=== PATIENT | male | born 1995 | race Caucasian/White ===

== ENCOUNTER 2018-06-06 06:35 | Emergency (ER) | payer MEDICAID ==
[~2018-06-06] VITALS: Ht 165.1 cm; Wt 63.6 kg
[2018-06-06 06:42] VITALS: Ht 165.1 cm; Wt 63.6 kg
[2018-06-06] MEDS ORDERED: OMEPRAZOLE20 M1 (06:43)
[2018-06-06 07:04] LABS: HEMATOCRIT 45.3 % (42.0-54.0); HEMOGLOBIN 16.4 g/dL (13.5-17.5); LYMPHOCYTES 21.4 % (15-50); MCH 30.7 pg (26.0-34.0); MCHC 36.2 g/dL (31.0-37.0); MCV 84.8 fL (80.0-100.0); MEAN PLATELET VOLUME 10.2 fL (7.4-10.4); NEUTROPHILS 70.6 % (40-80); PLATELET COUNT 195 10x3/uL (130-400); RBC 5.34 10x6/uL (4.20-6.10); RDW 13.1 % (11.5-14.5); WBC 11.4 10x3/uL (4.8-10.8)
[2018-06-06 07:18] LABS: ALBUMIN 4.5 g/dL (3.4-5.0); ALKALINE PHOSPHATASE 95 U/L (46-116); ALT (SGPT) 34 U/L (10-68); CALC OSMOLALITY 281 mosm/kg (275-300); CALCIUM 9.4 mg/dL (8.5-10.1); CARBON DIOXIDE 26.9 mmol/L (21.0-32.0); CHLORIDE - SERUM 101 mmol/L (98-107); CREATININE - SERUM 0.8 mg/dL (0.6-1.3); GLUCOSE 109 mg/dL (74-106); POTASSIUM - SERUM 3.8 mmol/L (3.5-5.1); SODIUM 140 mmol/L (136-145); UREA NITROGEN 18 mg/dL (7-18); eGFR NON AFRICAN AMERICAN > 90 mL/min (90-120)
[2018-06-06 07:22] LABS: AMYLASE - SERUM 65 U/L (25-115); LIPASE 152 U/L (73-393); TROPONIN-I < 0.017 ng/mL (0.000-0.060)
[2018-06-06 08:16] LABS: APPEARANCE CLOUDY (CLEAR); BILIRUBIN NEGATIVE (NEGATIVE); COLOR YELLOW (YELLOW); GLUCOSE NEGATIVE (NEGATIVE); KETONE NEGATIVE (NEGATIVE); NITRITE NEGATIVE (NEGATIVE); PROTEIN NEGATIVE (NEGATIVE); UROBILINOGEN NORMAL (NORMAL)
[2018-06-06] MEDS ORDERED: ZOFRAN ODT4 MG/UDTAB PO (08:30)
[2018-06-06] MEDS ORDERED: LOMOTIL 2.5-0.1 EAC1 PO (08:31)
[2018-06-06 09:20] VITALS: BP 114/60
== END 2018-06-06 09:05 | disposition home or self-care (01) ==
LOC: D.ER 06:35
PROVIDERS: Family Medicine
DX: R11.10 Vomiting, unspecified (principal); R10.9 Unspecified abdominal pain; R19.7 Diarrhea, unspecified; K21.9 Gastro-esophageal reflux disease without esophagitis; F17.200 Nicotine dependence, unspecified, uncomplicated

== ENCOUNTER 2018-09-03 22:30 | Emergency (ER) | payer MEDICAID ==
[~2018-09-03] VITALS: Ht 165.1 cm; Wt 59.1 kg
[~2018-09-03 22:30] MED LIST: LOMOTIL 2.5-0.1 EAC1 PO; OMEPRAZOLE20 M1; ZOFRAN ODT4 MG/UDTAB PO
[2018-09-03 22:43] VITALS: Ht 165.1 cm; Wt 59.1 kg
[2018-09-04] MEDS ORDERED: TORADOL10 MG PO (01:21)
[2018-09-04 01:33] VITALS: BP 124/76
== END 2018-09-04 01:33 | disposition home or self-care (01) ==
LOC: D.ER 22:30
DX: S50.11XA Contusion of right forearm, initial encounter (principal); Y93.83 Activity, rough housing and horseplay; Y92.019 Unspecified place in single-family (private) house as the place of occurrence of the external cause; F17.200 Nicotine dependence, unspecified, uncomplicated

== ENCOUNTER 2018-10-16 20:58 | Emergency (ER) | payer MEDICAID ==
[~2018-10-16] VITALS: Ht 165.1 cm; Wt 63.6 kg
[~2018-10-16 20:58] MED LIST changes: +TORADOL10 MG PO
[2018-10-16 21:17] VITALS: BP 138/99; Ht 165.1 cm; Wt 63.6 kg
== END 2018-10-16 22:03 | disposition left against medical advice (07) ==
LOC: D.ER 20:58
DX: R56.9 Unspecified convulsions (principal)

== ENCOUNTER 2019-03-19 23:13 | Emergency (ER) | payer SELFPAY ==
[~2019-03-19] VITALS: Ht 165.1 cm; Wt 63.6 kg
[2019-03-19 23:40] VITALS: BP 115/57; Ht 165.1 cm; Wt 63.6 kg
== END 2019-03-20 00:12 | disposition left against medical advice (07) ==
LOC: D.ER 23:13
DX: R10.9 Unspecified abdominal pain (principal)

== ENCOUNTER 2019-09-03 18:09 | Emergency (ER) | payer SELFPAY ==
[~2019-09-03] VITALS: Ht 162.6 cm; Wt 61.4 kg
[2019-09-03 18:23] VITALS: Ht 162.6 cm; Wt 61.4 kg
[2019-09-03] MEDS ORDERED: ZPAK PO (20:15)
[2019-09-03] MEDS ORDERED: MUCINEX DM ER1 EAC1 PO (20:15)
[2019-09-03 20:57] VITALS: BP 121/78
== END 2019-09-03 20:55 | disposition home or self-care (01) ==
LOC: D.ER 18:09
DX: J06.9 Acute upper respiratory infection, unspecified (principal); J40 Bronchitis, not specified as acute or chronic

== ENCOUNTER 2019-09-04 17:23 | Emergency (ER) | payer SELFPAY ==
[~2019-09-04] VITALS: Ht 162.6 cm; Wt 61.4 kg
[~2019-09-04 17:23] MED LIST changes: +MUCINEX DM ER1 EAC1 PO; +ZPAK PO
[2019-09-04 17:44] VITALS: Ht 162.6 cm; Wt 61.4 kg
[2019-09-04 18:03] VITALS: BP 138/72
== END 2019-09-04 18:04 | disposition home or self-care (01) ==
LOC: D.ER 17:23
DX: J06.9 Acute upper respiratory infection, unspecified (principal)

== ENCOUNTER 2019-09-08 00:08 | Emergency (ER) | payer SELFPAY ==
[~2019-09-08] VITALS: Ht 162.6 cm; Wt 61.4 kg
[2019-09-08 00:14] VITALS: Ht 162.6 cm; Wt 61.4 kg
[2019-09-08] MEDS ORDERED: IPRATROPIUM BRO15 M1 NASAL (01:19)
[2019-09-08] MEDS ORDERED: AUGMENTIN 875-11 TAB PO (01:19)
[2019-09-08 02:02] VITALS: BP 132/89
[2019-09-09] MEDS ORDERED: VISTARIL25 MG PO (15:17)
== END 2019-09-08 01:53 | disposition home or self-care (01) ==
LOC: D.ER 00:08
DX: J01.90 Acute sinusitis, unspecified (principal); Z72.0 Tobacco use

== ENCOUNTER 2019-09-09 14:20 | Emergency (ER) | payer SELFPAY ==
[~2019-09-09] VITALS: Ht 162.6 cm; Wt 68.2 kg
[~2019-09-09 14:20] MED LIST changes: +AUGMENTIN 875-11 TAB PO; +IPRATROPIUM BRO15 M1 NASAL
[2019-09-09 14:27] VITALS: Ht 162.6 cm; Wt 68.2 kg
[2019-09-09] MEDS ORDERED: VISTARIL25 MG PO (15:17)
[2019-09-09 15:39] VITALS: BP 115/72
== END 2019-09-09 15:40 | disposition home or self-care (01) ==
LOC: D.ER 14:20
DX: F41.9 Anxiety disorder, unspecified (principal); F43.10 Post-traumatic stress disorder, unspecified